=== PATIENT | female | born 1995 | race African-American/Black ===

== ENCOUNTER 2017-03-28 16:03 | Emergency (ER) | payer MEDICAID, OTHER ==
[2017-03-28 17:55] LABS: URINE BLOOD (Dip) POC Trace-lysed (NEGATIVE); URINE GLUCOSE (Dip) POC Negative (NEGATIVE); URINE KETONES (Dip) POC Negative (NEGATIVE); URINE LEUKOCYTE EST (Dip) POC Negative (NEGATIVE); URINE NITRITE (Dip) POC Negative (NEGATIVE); URINE TOTAL PROTEIN POC Negative (NEGATIVE)
[2017-03-28 17:55] LABS: URINE PH (Dip) POC 6.5 (5.0-8.5)
== END 2017-03-28 20:24 | disposition home or self-care (01) ==
LOC: FTE 16:03
DX: N93.9 Abnormal uterine and vaginal bleeding, unspecified (principal); T83.39XA Other mechanical complication of intrauterine contraceptive device, initial encounter; R10.2 Pelvic and perineal pain; Y82.8 Other medical devices associated with adverse incidents
CPT/HCPCS: 76830; 76856; 81003; 99284-25

== ENCOUNTER 2017-06-02 21:26 | Emergency (ER) | payer MEDICAID ==
[2017-06-03] MEDS: IPRATROPIUM (NEB) 0.5 MG/2.5 ML AMP NEB (02:12)
[2017-06-03] MEDS: METHYLPREDNISOLONE 125 MG INJ IM (02:12)
[2017-06-03] MEDS: ALBUTEROL 0.5% (NEB) 2.5 MG/0.5 ML AMP INH (02:18)
== END 2017-06-03 04:11 | disposition home or self-care (01) ==
LOC: FTE 21:26
DX: J45.901 Unspecified asthma with (acute) exacerbation (principal); J20.9 Acute bronchitis, unspecified
CPT/HCPCS: 71045; 94644; 96372; 99284-25

== ENCOUNTER 2017-12-06 17:50 | Emergency (ER) | payer MEDICAID ==
[2017-12-06] MEDS: METHYLPREDNISOLONE 125 MG INJ IM (21:17)
[2017-12-06] MEDS: IPRATROPIUM (NEB) 0.5 MG/2.5 ML AMP NEB (21:25)
[2017-12-06] MEDS: ALBUTEROL 0.083% (NEB) 2.5 MG/3 ML AMP NEB (21:25)
== END 2017-12-06 22:53 | disposition home or self-care (01) ==
LOC: FTE 17:50
DX: J20.9 Acute bronchitis, unspecified (principal); J45.901 Unspecified asthma with (acute) exacerbation; Z91.040 Latex allergy status
CPT/HCPCS: 71045; 94644; 96372; 99284-25

== ENCOUNTER 2018-06-27 16:54 | Emergency (ER) | payer MEDICAID ==
[2018-06-27] MEDS: predniSONE 20 MG TAB PO (18:48)
[2018-06-27] MEDS: ALBUTEROL 0.5% (NEB) 2.5 MG/0.5 ML AMP INH (19:15)
== END 2018-06-27 19:46 | disposition home or self-care (01) ==
LOC: FTE 19:46
DX: J06.9 Acute upper respiratory infection, unspecified (principal); J45.901 Unspecified asthma with (acute) exacerbation; Z91.040 Latex allergy status
CPT/HCPCS: 94664; 99283-25